=== PATIENT | male | born 1940 | race Caucasian/White ===

== ENCOUNTER 2016-10-06 15:41 | Inpatient (IN) | payer MEDICARE, BC ==
[2016-10-06] MEDS ORDERED: SODIUM CHLORIDE 0.9% 500 ML IV ONE (16:51)
--- NOTE | 2016-10-06 17:04 | ED ---
General Adult HPI - General Chief complaint: Altered Mental Status Stated complaint: Neck Pain, Cough, Confused Time Seen by Provider: 10/06/16 16:15 Source: patient, RN notes reviewed Mode of arrival: wheelchair - History of Present Illness Initial comments: This is a 75-year-old male who presents emergency department because of neck pain. Family states he fell about 9-10 days ago and has been complaining about neck pain ever since. Nobody witnessed it so they do not know if he lost consciousness and the patient has some dementia so he does not remember it. Family states he also has some altered mental status but the daughter believes this is been ongoing for months and has not acutely changed in the last 9-10 days since the fall. Patient has no numbness or weakness. Patient denies any chest pain or difficulty breathing currently. Daughter states initially had some left-sided chest pain which she believes could've been a cracked rib but since there is nothing new about it she did not bring him to the emergency department. Patient has not had any recent fevers or chills. Patient has had no recent cough. Patient denies any abdominal pain patient denies nausea vomiting diarrhea. Patient did go see a chiropractor but he did not take any x- rays. - Related Data Home Medications Medication Instructions Recorded Confirmed Atenolol [Tenormin] 25 mg PO QAM 10/06/16 10/06/16 Atenolol [Tenormin] 37.5 mg PO HS 10/06/16 10/06/16 Benazepril HCl [Lotensin] 20 mg PO DAILY 10/06/16 10/06/16 Calcium Citrate 250 mg PO DAILY 10/06/16 10/06/16 Cholecalciferol [Vitamin D3] 1,000 unit PO DAILY 10/06/16 10/06/16 Dipyridamole-Aspirin 200-25 mg 1 cap PO BID 10/06/16 10/06/16 [Aggrenox] Magnesium Oxide [Mag-Ox] 500 mg PO DAILY 10/06/16 10/06/16 Propylene Glycol/Peg 400/Pf 1 drop BOTH EYES BID PRN 10/06/16 10/06/16 [Systane 0.3-0.4% Eye Drops] Simvastatin [Zocor] 40 mg PO DAILY 10/06/16 10/06/16 Vit C/E/Zn/Coppr/Lutein/Zeaxan 1 cap PO BID 10/06/16 10/06/16 [Preservision Areds 2 Softgel] busPIRone HCl [Buspar] 5 mg PO BID 10/06/16 10/06/16 metFORMIN HCL [Glucophage] 250 mg PO BID-W/MEALS 10/06/16 10/06/16 tiZANidine [Zanaflex] 4 mg PO HS PRN 10/06/16 10/06/16 Allergies Allergy/AdvReac Type Severity Reaction Status Date / Time No Known Allergies Allergy Verified 10/06/16 17:04 Review of Systems ROS Statement: Those systems with pertinent positive or pertinent negative responses have been documented in the HPI. ROS Other: All systems not noted in ROS Statement are negative. Past Medical History Past Medical History: CVA/TIA, Diabetes Mellitus, Hyperlipidemia, Hypertension Additional Past Medical History / Comment(s): ARTHRITIS NECK History of Any Multi-Drug Resistant Organisms: None Reported Additional Past Surgical History / Comment(s): CATARACT Past Psychological History: No Psychological Hx Reported Smoking Status: Current every day smoker Past Alcohol Use History: Occasional Past Drug Use History: None Reported General Exam - General Exam Comments Initial Comments: GENERAL: Patient is well-developed and well-nourished. Patient is nontoxic and well- hydrated and is in mild distress. ENT: Neck is soft and supple. No significant lymphadenopathy is noted. Oropharynx is clear. Moist mucous membranes. Patient has some tenderness in the upper neck and both trapezius muscles he has no spinous process tenderness. EYES: The sclera were anicteric and conjunctiva were pink and moist. Extraocular movements were intact and pupils were equal round and reactive to light. Eyelids were unremarkable. PULMONARY: Unlabored respirations. Good breath sounds bilaterally. No audible rales rhonchi or wheezing was noted. CARDIOVASCULAR: There is a regular rate and rhythm without any murmurs gallops or rubs. ABDOMEN: Soft and nontender with normal bowel sounds. No palpable organomegaly was noted. There is no palpable pulsatile mass. SKIN: Skin is clear with no lesions or rashes and otherwise unremarkable. NEUROLOGIC: Patient is alert and oriented 2. Cranial nerves II through XII are grossly intact. Motor and sensory are also intact. Normal speech, volume and content. Symmetrical smile. MUSCULOSKELETAL: Normal extremities with adequate strength and full range of motion. No lower extremity swelling or edema. No calf tenderness. LYMPHATICS: No significant lymphadenopathy is noted PSYCHIATRIC: Normal psychiatric evaluation. Course Vital Signs 10/06/16 10/06/16 10/06/16 16:15 16:45 17:15 Temperature 98.9 F Pulse Rate 74 72 70 Respiratory 18 16 18 Rate Blood Pressure 154/75 151/70 136/65 O2 Sat by Pulse 96 95 95 Oximetry 10/06/16 10/06/16 10/06/16 20:56 21:19 22:14 Temperature 99.5 F 97.4 F L 99.2 F Pulse Rate 82 75 65 Respiratory 16 16 20 Rate Blood Pressure 177/92 186/88 191/89 O2 Sat by Pulse 96 98 98 Oximetry 10/06/16 10/07/16 10/07/16 23:30 00:16 00:44 Temperature 102.6 F H Pulse Rate 88 98 88 Respiratory 16 24 22 Rate Blood Pressure 211/98 217/110 191/87 O2 Sat by Pulse 98 98 98 Oximetry 10/07/16 10/07/16 10/07/16 00:52 00:54 01:33 Temperature 100.3 F H Pulse Rate 89 76 Respiratory 20 20 Rate Blood Pressure 184/86 176/91 171/86 O2 Sat by Pulse 98 98 Oximetry 10/07/16 10/07/16 10/07/16 02:30 03:20 04:33 Temperature 100 F H Pulse Rate 133 H 85 119 H Respiratory 20 22 24 Rate Blood Pressure 198/95 184/95 207/112 O2 Sat by Pulse 98 98 87 L Oximetry 10/07/16 10/07/16 10/07/16 05:26 05:30 05:55 Temperature Pulse Rate 121 H 135 H 125 H Respiratory 28 H 30 H 26 H Rate Blood Pressure 219/100 207/120 147/60 O2 Sat by Pulse 87 L 76 L 82 L Oximetry 10/07/16 10/07/16 10/07/16 06:19 06:57 07:32 Temperature Pulse Rate 102 H 92 83 Respiratory 16 16 20 Rate Blood Pressure 105/60 101/58 98/58 O2 Sat by Pulse 96 98 100 Oximetry 10/07/16 10/07/16 08:02 08:16 Temperature Pulse Rate 77 78 Respiratory 20 20 Rate Blood Pressure 99/57 100/56 O2 Sat by Pulse 99 100 Oximetry Medical Decision Making - Medical Decision Making EKG shows a normal sinus rhythm at 70 bpm MA interval 138 QRS is 94 Q-T intervals 432 QTC is 466. Patient's EKG shows no ST segment elevation or depression or T wave abnormalities are noted. Patient does have some ventricular hypertrophy. Patient's CT of the head and neck show no acute abnormality - Lab Data Result diagrams: 10/07/16 07:30 10/07/16 07:30 Lab Results 10/06/16 10/06/16 10/06/16 Range/Units 16:52 16:52 16:52 WBC 20.5 H (3.8-10.6) k/uL RBC 4.45 (4.30-5.90) m/uL Hgb 14.8 (13.0-17.5) gm/dL Hct 42.6 (39.0-53.0) % MCV 95.8 (80.0-100.0) fL MCH 33.3 (25.0-35.0) pg MCHC 34.8 (31.0-37.0) g/dL RDW 13.0 (11.5-15.5) % Plt Count 393 (150-450) k/uL Neutrophils % 88 % Lymphocytes % 6 % Monocytes % 5 % Eosinophils % 0 % Basophils % 0 % Neutrophils # 17.9 H (1.3-7.7) k/uL Lymphocytes # 1.2 (1.0-4.8) k/uL Monocytes # 0.9 (0-1.0) k/uL Eosinophils # 0.0 (0-0.7) k/uL Basophils # 0.0 (0-0.2) k/uL PT 12.9 H (9.0-12.0) sec INR 1.3 (<1.1) APTT 30.7 H (22.0-30.0) sec Sodium 131 L (137-145) mmol/L Potassium 3.8 (3.5-5.1) mmol/L Chloride 95 L (98-107) mmol/L Carbon Dioxide 27 (22-30) mmol/L Anion Gap 9 mmol/L BUN 22 H (9-20) mg/dL Creatinine 0.66 (0.66-1.25) mg/dL Est GFR (MDRD) Af Amer >60 (>60 ml/min/1.73 sqM) Est GFR (MDRD) Non-Af >60 (>60 ml/min/1.73 sqM) Glucose 276 H (74-99) mg/dL POC Glucose (mg/dL) (75-99) mg/dL POC Glu Colorer Hides And Skins ID Calcium 9.0 (8.4-10.2) mg/dL Total Bilirubin 2.4 H (0.2-1.3) mg/dL AST 40 (17-59) U/L ALT 36 (21-72) U/L Alkaline Phosphatase 196 H (38-126) U/L Total Protein 6.8 (6.3-8.2) g/dL Albumin 3.1 L (3.5-5.0) g/dL Urine Color Urine Appearance (Clear) Urine pH (5.0-8.0) Ur Specific Dale (1.001-1.035) Urine Protein (Negative) Urine Glucose (UA) (Negative) Urine Ketones (Negative) Urine Blood (Negative) Urine Nitrite (Negative) Urine Bilirubin (Negative) Urine Urobilinogen (<2.0) mg/dL Ur Leukocyte Esterase (Negative) Urine RBC (0-5) /hpf Urine WBC (0-5) /hpf Urine Bacteria (None) /hpf Hyaline Casts (0-2) /lpf Urine Mucus (None) /hpf Urine Yeast (Budding) (None) /hpf Urine Opiates Screen (NotDetected) Ur Oxycodone Screen (NotDetected) Urine Methadone Screen (NotDetected) Ur Propoxyphene Screen (NotDetected) Ur Barbiturates Screen (NotDetected) U Tricyclic Antidepress (NotDetected) Ur Phencyclidine Scrn (NotDetected) Ur Amphetamines Screen (NotDetected) U Methamphetamines Scrn (NotDetected) U Benzodiazepines Scrn (NotDetected) Urine Cocaine Screen (NotDetected) U Marijuana (THC) Screen (NotDetected) Serum Alcohol mg/dL 10/06/16 10/06/16 10/06/16 Range/Units 17:04 18:50 18:50 WBC (3.8-10.6) k/uL RBC (4.30-5.90) m/uL Hgb (13.0-17.5) gm/dL Hct (39.0-53.0) % MCV (80.0-100.0) fL MCH (25.0-35.0) pg MCHC (31.0-37.0) g/dL RDW (11.5-15.5) % Plt Count (150-450) k/uL Neutrophils % % Lymphocytes % % Monocytes % % Eosinophils % % Basophils % % Neutrophils # (1.3-7.7) k/uL Lymphocytes # (1.0-4.8) k/uL Monocytes # (0-1.0) k/uL Eosinophils # (0-0.7) k/uL Basophils # (0-0.2) k/uL PT (9.0-12.0) sec INR (<1.1) APTT (22.0-30.0) sec Sodium (137-145) mmol/L Potassium (3.5-5.1) mmol/L Chloride (98-107) mmol/L Carbon Dioxide (22-30) mmol/L Anion Gap mmol/L BUN (9-20) mg/dL Creatinine (0.66-1.25) mg/dL Est GFR (MDRD) Af Amer (>60 ml/min/1.73 sqM) Est GFR (MDRD) Non-Af (>60 ml/min/1.73 sqM) Glucose (74-99) mg/dL POC Glucose (mg/dL) 271 H (75-99) mg/dL POC Glu Colorer Hides And Skins ID Branch, Avery Calcium (8.4-10.2) mg/dL Total Bilirubin (0.2-1.3) mg/dL AST (17-59) U/L ALT (21-72) U/L Alkaline Phosphatase (38-126) U/L Total Protein (6.3-8.2) g/dL Albumin (3.5-5.0) g/dL Urine Color Dark Yellow Urine Appearance Clear (Clear) Urine pH 6.0 (5.0-8.0) Ur Specific Dale 1.020 (1.001-1.035) Urine Protein 1+ H (Negative) Urine Glucose (UA) 4+ H (Negative) Urine Ketones 1+ H (Negative) Urine Blood Large H (Negative) Urine Nitrite Negative (Negative) Urine Bilirubin 1+ H (Negative) Urine Urobilinogen 3.0 (<2.0) mg/dL Ur Leukocyte Esterase Negative (Negative) Urine RBC 89 H (0-5) /hpf Urine WBC 4 (0-5) /hpf Urine Bacteria Rare H (None) /hpf Hyaline Casts 1 (0-2) /lpf Urine Mucus Rare H (None) /hpf Urine Yeast (Budding) Rare H (None) /hpf Urine Opiates Screen Not Detected (NotDetected) Ur Oxycodone Screen Not Detected (NotDetected) Urine Methadone Screen Not Detected (NotDetected) Ur Propoxyphene Screen Not Detected (NotDetected) Ur Barbiturates Screen Not Detected (NotDetected) U Tricyclic Antidepress Not Detected (NotDetected) Ur Phencyclidine Scrn Not Detected (NotDetected) Ur Amphetamines Screen Not Detected (NotDetected) U Methamphetamines Scrn Not Detected (NotDetected) U Benzodiazepines Scrn Not Detected (NotDetected) Urine Cocaine Screen Not Detected (NotDetected) U Marijuana (THC) Screen Not Detected (NotDetected) Serum Alcohol mg/dL 10/06/16 Range/Units 19:30 WBC (3.8-10.6) k/uL RBC (4.30-5.90) m/uL Hgb (13.0-17.5) gm/dL Hct (39.0-53.0) % MCV (80.0-100.0) fL MCH (25.0-35.0) pg MCHC (31.0-37.0) g/dL RDW (11.5-15.5) % Plt Count (150-450) k/uL Neutrophils % % Lymphocytes % % Monocytes % % Eosinophils % % Basophils % % Neutrophils # (1.3-7.7) k/uL Lymphocytes # (1.0-4.8) k/uL Monocytes # (0-1.0) k/uL Eosinophils # (0-0.7) k/uL Basophils # (0-0.2) k/uL PT (9.0-12.0) sec INR (<1.1) APTT (22.0-30.0) sec Sodium (137-145) mmol/L Potassium (3.5-5.1) mmol/L Chloride (98-107) mmol/L Carbon Dioxide (22-30) mmol/L Anion Gap mmol/L BUN (9-20) mg/dL Creatinine (0.66-1.25) mg/dL Est GFR (MDRD) Af Amer (>60 ml/min/1.73 sqM) Est GFR (MDRD) Non-Af (>60 ml/min/1.73 sqM) Glucose (74-99) mg/dL POC Glucose (mg/dL) (75-99) mg/dL POC Glu Colorer Hides And Skins ID Calcium (8.4-10.2) mg/dL Total Bilirubin (0.2-1.3) mg/dL AST (17-59) U/L ALT (21-72) U/L Alkaline Phosphatase (38-126) U/L Total Protein (6.3-8.2) g/dL Albumin (3.5-5.0) g/dL Urine Color Urine Appearance (Clear) Urine pH (5.0-8.0) Ur Specific Dale (1.001-1.035) Urine Protein (Negative) Urine Glucose (UA) (Negative) Urine Ketones (Negative) Urine Blood (Negative) Urine Nitrite (Negative) Urine Bilirubin (Negative) Urine Urobilinogen (<2.0) mg/dL Ur Leukocyte Esterase (Negative) Urine RBC (0-5) /hpf Urine WBC (0-5) /hpf Urine Bacteria (None) /hpf Hyaline Casts (0-2) /lpf Urine Mucus (None) /hpf Urine Yeast (Budding) (None) /hpf Urine Opiates Screen (NotDetected) Ur Oxycodone Screen (NotDetected) Urine Methadone Screen (NotDetected) Ur Propoxyphene Screen (NotDetected) Ur Barbiturates Screen (NotDetected) U Tricyclic Antidepress (NotDetected) Ur Phencyclidine Scrn (NotDetected) Ur Amphetamines Screen (NotDetected) U Methamphetamines Scrn (NotDetected) U Benzodiazepines Scrn (NotDetected) Urine Cocaine Screen (NotDetected) U Marijuana (THC) Screen (NotDetected) Serum Alcohol <10 mg/dL Disposition Clinical Impression: Hypertension, Altered mental status, Dehydration, Decubitus ulcer of toe, Leukocytosis Disposition: ADMITTED IP TO THIS [facility] Time of Disposition: 20:55
[2016-10-06 17:06] LABS: Glucose,Whole Blood 271 mg/dL (75-99)
[2016-10-06 17:21] LABS: Basophils % (A) 0 %; CH 32.6; CHCM 34.1; Eosinophils % (A) 0 %; HCT 42.6 % (39.0-53.0); HGB 14.8 gm/dL (13.0-17.5); Luc # (Auto) 0.35; Luc % (Auto) 2; Lymphocytes # (A) 1.2 k/uL (1.0-4.8); Lymphocytes % (A) 6 %; MCH 33.3 pg (25.0-35.0); MCHC 34.8 g/dL (31.0-37.0); MCV 95.8 fL (80.0-100.0); Mean Platelet Volume 8.5; Monocytes # (A) 0.9 k/uL (0-1.0); Monocytes % (A) 5 %; Neutrophils # (A) 17.9 k/uL (1.3-7.7); Neutrophils % (A) 88 %; RBC 4.45 m/uL (4.30-5.90); WBC 20.5 k/uL (3.8-10.6); WBC (Perox) 20.62
[2016-10-06 17:30] LABS: ALT 36 U/L (21-72); AST 40 U/L (17-59); Alkaline Phosphatase 196 U/L (38-126); Anion Gap 9 mmol/L; Blood Urea Nitrogen 22 mg/dL (9-20); Carbon Dioxide 27 mmol/L (22-30); Chloride 95 mmol/L (98-107); Glucose 276 mg/dL (74-99); Non-African American GFR(MDRD) >60 (>60 ml/min/1.73 sqM); Potassium 3.8 mmol/L (3.5-5.1); Sodium 131 mmol/L (137-145); Total Bilirubin 2.4 mg/dL (0.2-1.3); Total Protein 6.8 g/dL (6.3-8.2)
[2016-10-06 17:32] LABS: INR 1.3 (<1.1); Partial Thromboplastin Time 30.7 sec (22.0-30.0); Prothrombin Time 12.9 sec (9.0-12.0)
--- NOTE | 2016-10-06 17:43 | XR ---
EXAMINATION TYPE: XR chest 2V DATE OF EXAM: 10/06/2016 5:23 PM COMPARISON: NONE HISTORY: Increased confusion and congestion. History of hypertension. TECHNIQUE: Frontal and lateral views of the chest are obtained. FINDINGS: There is no focal air space opacity, pleural effusion, or pneumothorax seen. The cardiac silhouette size is mildly enlarged with mild to moderate central vascular congestion felt present. T here is atherosclerotic and slightly ectatic thoracic aorta. The osseous structures are intact. IMPRESSION: Mild cardiomegaly with [id number] central vascular congestion, consider CHF exacer bation. Clinical correlation advised.
--- NOTE | 2016-10-06 18:07 | CT ---
EXAMINATION TYPE: CT brain cspine wo con DATE OF EXAM: 10/06/2016 5:46 PM COMPARISON: MRI brain November 11, 2013. HISTORY: Neck pain and confusion. CT DLP: 1624.00 mGycm. Automated Exposure Control for Dose Reduction was Utilized. TECHNIQUE: CT scan of the head and cervical spine are performed without contrast. FINDINGS: There is no acute intracranial hemorrhage or midline shift identified. There is ventricul ar and sulcal prominence consistent with diffuse cerebral atrophy. There is low-attenuation in the pe riventricular white matter. Mild mucosal thickening involving right maxillary sinus is felt present a s well as involving left lateral sphenoid sinus and right frontal sinus. Remainder paranasal sinuses are clear. Vascular calcification distal internal carotid arteries is present bilaterally. Neither le ns is well seen in either globe. Cervical spine is visualized in its entirety from C1 through upper thoracic levels and demonstrates s traightened alignment without evidence of acute fracture or dislocation. Prevertebral soft tissue ap pears within normal limits. The C1-C2 articulation is within normal limits on the coronal images. Th ere is marked narrowing of the atlantodental interval with spurring present. Vertebral body heights are maintained. There is moderate to severe spurring and disc space narrowing at C5-C6 and C6-C7 levels. Review of axial images shows uncovertebral facet degenerative changes bila terally at C3-C4 level contributing to moderate left greater than right neural foraminal narrowing. T here are uncovertebral facet degenerative changes at C4-C5 level contributing to mild to moderate paul ateral neural foraminal narrowing. Thyroid gland is felt within normal limits. Mild emphysematous ness nge in the lung apices is seen. IMPRESSION: 1. There is no acute fracture or dislocation evident in the cervical spine. 2. No acute intracranial hemorrhage or midline shift is seen. There is mild to moderate diffuse cereb ral atrophy with severe chronic small vessel ischemic change redemonstrated.
[2016-10-06 20:13] LABS: Appearance,Urine Clear (Clear); Bacteria,Urine Rare /hpf; Bilirubin,Urine 1+ (Negative); Glucose,Urine (UA) 4+ (Negative); Ketones,Urine 1+ (Negative); Leukocyte Esterase,Urine Negative (Negative); Mucus,Urine Rare /hpf; Nitrite,Urine Negative (Negative); Particle Count 3384; Protein,Urine 1+ (Negative); RBC,Urine 89 /hpf (0-5); UA Billing (MACRO vs. MICRO) MICRO; WBC,Urine 4 /hpf (0-5)
[2016-10-06] MEDS ORDERED: hydrALAZINE HCL 20 MG/ML 1 ML VIAL IVP STA (20:48)
[2016-10-06] MEDS ORDERED: SODIUM CHLORIDE 0.9% 1,000 ML IV ONE (20:56)
[2016-10-06] MEDS: LORazepam 2 MG/ML SYRINGE IV STA ×2 (21:01→21:40)
[2016-10-06] MEDS ORDERED: LORazepam 2 MG/ML SYRINGE IV PRN (21:50)
[2016-10-06] MEDS ORDERED: ATENOLOL 12.5 MG TAB PO STA (22:29)
[2016-10-06] MEDS ORDERED: LORazepam 2 MG/ML SYRINGE IV STA (23:30)
[2016-10-07] MEDS ORDERED: ACETAMINOPHEN SUPPOSITORY 650 MG SUPP RECTAL STA (00:18)
[2016-10-07 01:48] LABS: Glucose,Whole Blood 223 mg/dL (75-99)
[2016-10-07] MEDS ORDERED: LORazepam 2 MG/ML SYRINGE IV STA (03:23)
[2016-10-07] MEDS: hydrALAZINE HCL 20 MG/ML 1 ML VIAL IVP STA ×2 (04:32→05:42)
[2016-10-07] MEDS ORDERED: MIDAZOLAM (PF) 1 MG/ML 5 ML VIAL IV STA ×2 (06:01→06:17)
[2016-10-07] MEDS: MORPHINE SULFATE 4 MG/ML SYRINGE IVP STA ×2 (06:02→06:24)
--- NOTE | 2016-10-07 06:23 | ED ---
Medical Decision Making - Medical Decision Making I was called to the bedside for this admitted patient who is holding in the ER regarding decreased responsiveness, decreased pulse oximetry and hypertension. Clinically the patient does appear to be developing a worsening congestive heart failure. It is brought into the resuscitation room. I did discuss the case with admitting physician, Dr. Rucker. IV nitroglycerin had been started for blood pressure control. As the patient was not protecting airway he met indication for intubation for airway protection and for respiratory failure. Patient was intubated without complication. The pulse oximetry improved. Patient's vital signs are improved. - Lab Data Result diagrams: 10/06/16 16:52 10/06/16 16:52 Lab Results 10/06/16 10/06/16 10/06/16 Range/Units 16:52 16:52 16:52 WBC 20.5 H (3.8-10.6) k/uL RBC 4.45 (4.30-5.90) m/uL Hgb 14.8 (13.0-17.5) gm/dL Hct 42.6 (39.0-53.0) % MCV 95.8 (80.0-100.0) fL MCH 33.3 (25.0-35.0) pg MCHC 34.8 (31.0-37.0) g/dL RDW 13.0 (11.5-15.5) % Plt Count 393 (150-450) k/uL Neutrophils % 88 % Lymphocytes % 6 % Monocytes % 5 % Eosinophils % 0 % Basophils % 0 % Neutrophils # 17.9 H (1.3-7.7) k/uL Lymphocytes # 1.2 (1.0-4.8) k/uL Monocytes # 0.9 (0-1.0) k/uL Eosinophils # 0.0 (0-0.7) k/uL Basophils # 0.0 (0-0.2) k/uL PT 12.9 H (9.0-12.0) sec INR 1.3 (<1.1) APTT 30.7 H (22.0-30.0) sec Sodium 131 L (137-145) mmol/L Potassium 3.8 (3.5-5.1) mmol/L Chloride 95 L (98-107) mmol/L Carbon Dioxide 27 (22-30) mmol/L Anion Gap 9 mmol/L BUN 22 H (9-20) mg/dL Creatinine 0.66 (0.66-1.25) mg/dL Est GFR (MDRD) Af Amer >60 (>60 ml/min/1.73 sqM) Est GFR (MDRD) Non-Af >60 (>60 ml/min/1.73 sqM) Glucose 276 H (74-99) mg/dL POC Glucose (mg/dL) (75-99) mg/dL POC Glu Cheese Sprayer ID Calcium 9.0 (8.4-10.2) mg/dL Total Bilirubin 2.4 H (0.2-1.3) mg/dL AST 40 (17-59) U/L ALT 36 (21-72) U/L Alkaline Phosphatase 196 H (38-126) U/L Total Protein 6.8 (6.3-8.2) g/dL Albumin 3.1 L (3.5-5.0) g/dL Urine Color Urine Appearance (Clear) Urine pH (5.0-8.0) Ur Specific [place] (1.001-1.035) Urine Protein (Negative) Urine Glucose (UA) (Negative) Urine Ketones (Negative) Urine Blood (Negative) Urine Nitrite (Negative) Urine Bilirubin (Negative) Urine Urobilinogen (<2.0) mg/dL Ur Leukocyte Esterase (Negative) Urine RBC (0-5) /hpf Urine WBC (0-5) /hpf Urine Bacteria (None) /hpf Hyaline Casts (0-2) /lpf Urine Mucus (None) /hpf Urine Yeast (Budding) (None) /hpf Urine Opiates Screen (NotDetected) Ur Oxycodone Screen (NotDetected) Urine Methadone Screen (NotDetected) Ur Propoxyphene Screen (NotDetected) Ur Barbiturates Screen (NotDetected) U Tricyclic Antidepress (NotDetected) Ur Phencyclidine Scrn (NotDetected) Ur Amphetamines Screen (NotDetected) U Methamphetamines Scrn (NotDetected) U Benzodiazepines Scrn (NotDetected) Urine Cocaine Screen (NotDetected) U Marijuana (THC) Screen (NotDetected) Serum Alcohol mg/dL 04/10/17 04/10/17 04/10/17 Range/Units 17:04 18:50 18:50 WBC (3.8-10.6) k/uL RBC (4.30-5.90) m/uL Hgb (13.0-17.5) gm/dL Hct (39.0-53.0) % MCV (80.0-100.0) fL MCH (25.0-35.0) pg MCHC (31.0-37.0) g/dL RDW (11.5-15.5) % Plt Count (150-450) k/uL Neutrophils % % Lymphocytes % % Monocytes % % Eosinophils % % Basophils % % Neutrophils # (1.3-7.7) k/uL Lymphocytes # (1.0-4.8) k/uL Monocytes # (0-1.0) k/uL Eosinophils # (0-0.7) k/uL Basophils # (0-0.2) k/uL PT (9.0-12.0) sec INR (<1.1) APTT (22.0-30.0) sec Sodium (137-145) mmol/L Potassium (3.5-5.1) mmol/L Chloride (98-107) mmol/L Carbon Dioxide (22-30) mmol/L Anion Gap mmol/L BUN (9-20) mg/dL Creatinine (0.66-1.25) mg/dL Est GFR (MDRD) Af Amer (>60 ml/min/1.73 sqM) Est GFR (MDRD) Non-Af (>60 ml/min/1.73 sqM) Glucose (74-99) mg/dL POC Glucose (mg/dL) 271 H (75-99) mg/dL POC Glu Cheese Sprayer ID Branch, Avery Calcium (8.4-10.2) mg/dL Total Bilirubin (0.2-1.3) mg/dL AST (17-59) U/L ALT (21-72) U/L Alkaline Phosphatase (38-126) U/L Total Protein (6.3-8.2) g/dL Albumin (3.5-5.0) g/dL Urine Color Dark Yellow Urine Appearance Clear (Clear) Urine pH 6.0 (5.0-8.0) Ur Specific [place] 1.020 (1.001-1.035) Urine Protein 1+ H (Negative) Urine Glucose (UA) 4+ H (Negative) Urine Ketones 1+ H (Negative) Urine Blood Large H (Negative) Urine Nitrite Negative (Negative) Urine Bilirubin 1+ H (Negative) Urine Urobilinogen 3.0 (<2.0) mg/dL Ur Leukocyte Esterase Negative (Negative) Urine RBC 89 H (0-5) /hpf Urine WBC 4 (0-5) /hpf Urine Bacteria Rare H (None) /hpf Hyaline Casts 1 (0-2) /lpf Urine Mucus Rare H (None) /hpf Urine Yeast (Budding) Rare H (None) /hpf Urine Opiates Screen Not Detected (NotDetected) Ur Oxycodone Screen Not Detected (NotDetected) Urine Methadone Screen Not Detected (NotDetected) Ur Propoxyphene Screen Not Detected (NotDetected) Ur Barbiturates Screen Not Detected (NotDetected) U Tricyclic Antidepress Not Detected (NotDetected) Ur Phencyclidine Scrn Not Detected (NotDetected) Ur Amphetamines Screen Not Detected (NotDetected) U Methamphetamines Scrn Not Detected (NotDetected) U Benzodiazepines Scrn Not Detected (NotDetected) Urine Cocaine Screen Not Detected (NotDetected) U Marijuana (THC) Screen Not Detected (NotDetected) Serum Alcohol mg/dL 10/06/16 Range/Units 19:30 WBC (3.8-10.6) k/uL RBC (4.30-5.90) m/uL Hgb (13.0-17.5) gm/dL Hct (39.0-53.0) % MCV (80.0-100.0) fL MCH (25.0-35.0) pg MCHC (31.0-37.0) g/dL RDW (11.5-15.5) % Plt Count (150-450) k/uL Neutrophils % % Lymphocytes % % Monocytes % % Eosinophils % % Basophils % % Neutrophils # (1.3-7.7) k/uL Lymphocytes # (1.0-4.8) k/uL Monocytes # (0-1.0) k/uL Eosinophils # (0-0.7) k/uL Basophils # (0-0.2) k/uL PT (9.0-12.0) sec INR (<1.1) APTT (22.0-30.0) sec Sodium (137-145) mmol/L Potassium (3.5-5.1) mmol/L Chloride (98-107) mmol/L Carbon Dioxide (22-30) mmol/L Anion Gap mmol/L BUN (9-20) mg/dL Creatinine (0.66-1.25) mg/dL Est GFR (MDRD) Af Amer (>60 ml/min/1.73 sqM) Est GFR (MDRD) Non-Af (>60 ml/min/1.73 sqM) Glucose (74-99) mg/dL POC Glucose (mg/dL) (75-99) mg/dL POC Glu Cheese Sprayer ID Calcium (8.4-10.2) mg/dL Total Bilirubin (0.2-1.3) mg/dL AST (17-59) U/L ALT (21-72) U/L Alkaline Phosphatase (38-126) U/L Total Protein (6.3-8.2) g/dL Albumin (3.5-5.0) g/dL Urine Color Urine Appearance (Clear) Urine pH (5.0-8.0) Ur Specific [place] (1.001-1.035) Urine Protein (Negative) Urine Glucose (UA) (Negative) Urine Ketones (Negative) Urine Blood (Negative) Urine Nitrite (Negative) Urine Bilirubin (Negative) Urine Urobilinogen (<2.0) mg/dL Ur Leukocyte Esterase (Negative) Urine RBC (0-5) /hpf Urine WBC (0-5) /hpf Urine Bacteria (None) /hpf Hyaline Casts (0-2) /lpf Urine Mucus (None) /hpf Urine Yeast (Budding) (None) /hpf Urine Opiates Screen (NotDetected) Ur Oxycodone Screen (NotDetected) Urine Methadone Screen (NotDetected) Ur Propoxyphene Screen (NotDetected) Ur Barbiturates Screen (NotDetected) U Tricyclic Antidepress (NotDetected) Ur Phencyclidine Scrn (NotDetected) Ur Amphetamines Screen (NotDetected) U Methamphetamines Scrn (NotDetected) U Benzodiazepines Scrn (NotDetected) Urine Cocaine Screen (NotDetected) U Marijuana (THC) Screen (NotDetected) Serum Alcohol <10 mg/dL Disposition Clinical Impression: Hypertension, Altered mental status, Dehydration, Decubitus ulcer of toe, Leukocytosis Disposition: ADMITTED IP TO THIS [facility] Procedures - Intubation Time Out Performed: Yes Sedative: Versed Laryngoscope: Dania Size: 3 ET Tube Size: 8 ET Tube Uncuffed: No Tube Secured Location: lips Tube Placement Confirmation: visualized tube passing through cords, equal breath sounds bilaterally, no breath sounds over epigastrium, confirmation by capnometry Patient Tolerated Procedure: no complications Intubation Complications: none
[2016-10-07] MEDS ORDERED: NITROGLYCERIN-D5W PMX 50 MG in DEXTROSE/WATER 1 250ML.BAG IV SCH ×2 (06:30→06:45)
[2016-10-07 06:34] LABS: ABG HCO3 22 mmol/L (21-25); ABG PCO2 39 mmHg (35-45); ABG PH 7.37 (7.35-7.45); ABG PO2 252 mmHg (83-108); ABG TCO2 23 mmol/L (19-24)
[2016-10-07 06:35] LABS: ABG Base Excess -2.7 mmol/L
--- NOTE | 2016-10-07 06:38 | XR ---
EXAM: XR Chest, 1 View. CLINICAL HISTORY: Reason: SOB TECHNIQUE: Frontal view of the chest. COMPARISON: CXR 10/06/16 FINDINGS: Lungs: Increased bilateral lower lung interstitial densities. Pleural space: Bilateral small pleural effusions. Heart: Unremarkable. No cardiomegaly. Mediastinum: Unremarkable. Bones/joints: Unremarkable. Tubes, lines and devices: ET tube 3 cm above the navjot. NG tube tip within the fundus of the stomach. IMPRESSION: 1. Increased bilateral lower lung interstitial densities. Findings may reflect worsening failure or other interstitial process. 2. Bilateral small pleural effusions. 3. ET tube 3 cm above the navjot.
[2016-10-07] MEDS ORDERED: LEVOFLOXACIN 750MG-D5W PMX 750 MG in DEXTROSE/WATER 1 150ML.BAG IVPB STA (07:43)
[2016-10-07 07:57] LABS: Basophils % (A) 0 %; CH 32.4; CHCM 33.7; Eosinophils # (A) 0.1 k/uL (0-0.7); Eosinophils % (A) 0 %; HDW 2.41; HGB 13.5 gm/dL (13.0-17.5); Luc % (Auto) 1; Lymphocytes # (A) 0.7 k/uL (1.0-4.8); Lymphocytes % (A) 2 %; MCH 32.6 pg (25.0-35.0); MCHC 33.8 g/dL (31.0-37.0); MCV 96.4 fL (80.0-100.0); Mean Platelet Volume 8.3; Monocytes # (A) 0.7 k/uL (0-1.0); Monocytes % (A) 2 %; Neutrophils # (A) 30.5 k/uL (1.3-7.7); Neutrophils % (A) 95 %; RBC 4.14 m/uL (4.30-5.90); WBC (Perox) 32.59
[2016-10-07 08:03] LABS: WBC 32.3 k/uL (3.8-10.6)
[2016-10-07 08:11] LABS: ALT 34 U/L (21-72); AST 23 U/L (17-59); Alkaline Phosphatase 142 U/L (38-126); Anion Gap 11 mmol/L; Blood Urea Nitrogen 18 mg/dL (9-20); Calcium 8.3 mg/dL (8.4-10.2); Carbon Dioxide 24 mmol/L (22-30); Chloride 99 mmol/L (98-107); Glucose 274 mg/dL (74-99); Non-African American GFR(MDRD) >60 (>60 ml/min/1.73 sqM); Potassium 3.6 mmol/L (3.5-5.1); Sodium 134 mmol/L (137-145); Total Bilirubin 2.5 mg/dL (0.2-1.3)
[2016-10-07] MEDS ORDERED: Potassium Replacement Protocol 1 EACH MISC MISCELLANE PRN ×2 (09:43→22:34)
[2016-10-07] MEDS ORDERED: Magnesium Replacement Protocol 1 EACH MISC MISCELLANE PRN (09:43)
[2016-10-07] MEDS ORDERED: PROPOFOL 50 ML IV ONE (10:50)
[2016-10-07] MEDS: PROPOFOL 500 MG in EMPTY BAG 1 BAG IV SCH ×2 (11:30→19:52)
[2016-10-07 11:36] LABS: Glucose,Whole Blood 259 mg/dL (75-99)
[2016-10-07] MEDS ORDERED: IPRATROPIUM-ALBUTEROL 3 ML NEB INHALATION PRN (11:39)
[2016-10-07] MEDS ORDERED: SODIUM CHLORIDE 0.9% 500 ML IV ONE (11:39)
--- NOTE | 2016-10-07 12:06 | P.HPIM ---
History of Present Illness H&P Date: 10/07/16 Chief Complaint: Headache and neck pain Patient is currently sedated and intubated in the emergency room. He is unable to provide medical history most of the medical history was obtained by chart review and nursing staff report. This is a 75-year-old gentleman with past medical history noted below who presented to the emergency room originally with worsening headache and neck pain. Apparently, the patient is a very poor historian and most of the history was obtained by his . Patient had a fall at home approximately a week ago and since then he was complaining of neck pain and mild headache. He was initially evaluated and underwent a computed tomography scan of the head and cervical spine showing no acute Process. Per report, patient is a heavy alcohol drinker and does not take his medication regularly. He was noted to have elevated blood pressure in the emergency room initially in the 150s and 160s systolic. Apparently, patient was getting more agitated and he received multiple doses of IV Ativan. Throughout the night, his systolic blood pressure increased to 190s and 200 and after receiving 2 doses of IV hydralazine 10 mg blood pressure remained elevated. He had increase in his oxygen requirement and was essentially unremarkable agreed her. He was reevaluated by the ER physician and was concerned about him not able to protect his airway and worsening lethargy patient was intubated. Repeat chest x-ray showed worsening bibasilar infiltrate with possible aspiration pneumonia. Review of Systems Unable to review other systems as patient is sedated and intubated Past Medical History Past Medical History: CVA/TIA, Diabetes Mellitus, Hyperlipidemia, Hypertension Additional Past Medical History / Comment(s): ARTHRITIS NECK History of Any Multi-Drug Resistant Organisms: None Reported Additional Past Surgical History / Comment(s): CATARACT Past Psychological History: No Psychological Hx Reported Smoking Status: Current every day smoker Past Alcohol Use History: Occasional Past Drug Use History: None Reported Medications and Allergies Home Medications Medication Instructions Recorded Confirmed Type Atenolol [Tenormin] 25 mg PO QAM 10/06/16 10/06/16 History Atenolol [Tenormin] 37.5 mg PO HS 10/06/16 10/06/16 History Benazepril HCl [Lotensin] 20 mg PO DAILY 10/06/16 10/06/16 History Calcium Citrate 250 mg PO DAILY 10/06/16 10/06/16 History Cholecalciferol [Vitamin D3] 1,000 unit PO DAILY 10/06/16 10/06/16 History Dipyridamole-Aspirin 200-25 mg 1 cap PO BID 10/06/16 10/06/16 History [Aggrenox] Magnesium Oxide [Mag-Ox] 500 mg PO DAILY 10/06/16 10/06/16 History Propylene Glycol/Peg 400/Pf 1 drop BOTH EYES BID PRN 10/06/16 10/06/16 History [Systane 0.3-0.4% Eye Drops] Simvastatin [Zocor] 40 mg PO DAILY 10/06/16 10/06/16 History Vit C/E/Zn/Coppr/Lutein/Zeaxan 1 cap PO BID 10/06/16 10/06/16 History [Preservision Areds 2 Softgel] busPIRone HCl [Buspar] 5 mg PO BID 10/06/16 10/06/16 History metFORMIN HCL [Glucophage] 250 mg PO BID-W/MEALS 10/06/16 10/06/16 History tiZANidine [Zanaflex] 4 mg PO HS PRN 10/06/16 10/06/16 History Allergies Allergy/AdvReac Type Severity Reaction Status Date / Time No Known Allergies Allergy Verified 10/06/16 17:04 Physical Exam Vitals: Vital Signs Temp Pulse Resp BP Pulse Ox 10/07/16 11:40 98.3 F 78 20 140/71 96 10/07/16 11:30 79 19 140/71 99 10/07/16 11:26 79 18 10/07/16 10:11 98.2 F 74 20 113/64 98 10/07/16 10:10 98.2 F 76 20 111/63 99 10/07/16 09:00 98.2 F 74 20 118/68 10/07/16 08:30 98.2 F 76 20 101/60 10/07/16 08:16 78 20 100/56 100 10/07/16 08:02 77 20 99/57 99 10/07/16 07:32 83 20 98/58 100 10/07/16 06:57 92 16 101/58 98 10/07/16 06:19 102 H 16 105/60 96 10/07/16 05:55 125 H 26 H 147/60 82 L 10/07/16 05:30 135 H 30 H 207/120 76 L 10/07/16 05:26 121 H 28 H 219/100 87 L 10/07/16 04:33 100 F H 119 H 24 207/112 87 L 10/07/16 03:20 85 22 184/95 98 10/07/16 02:30 133 H 20 198/95 98 10/07/16 01:33 76 20 171/86 98 10/07/16 00:54 100.3 F H 176/91 10/07/16 00:52 89 20 184/86 98 10/07/16 00:44 88 22 191/87 98 10/07/16 00:16 102.6 F H 98 24 217/110 98 10/06/16 23:30 88 16 211/98 98 10/06/16 22:14 99.2 F 65 20 191/89 98 10/06/16 21:19 97.4 F L 75 16 186/88 98 Intake and Output 10/06/16 10/07/16 10/07/16 22:59 06:59 14:59 Intake Total 6.4 500 Output Total 150 200 Balance -143.6 300 Intake: Intake, IV Titration 6.4 500 Amount Nitroglycerin-D5w Pmx 50 6.4 mg In Dextrose/Water 1 250ml.bag @ 20 MCG/MIN 6 mls/hr IV .Q24H [facility] Rx#: [id number] Sodium Chloride 0.9% 500 500 ml @ 999 mls/hr IV .Q31M ONE Rx#:[id number] Output: Urine 150 200 Uretheral (Rosen) 150 General: The patient is sedated and intubated Eye: there is normal conjunctiva bilaterally. Neck: The neck is supple, there is no JVD. Cardiovascular: Normal S1-S2, no S3-S4, no murmurs. Respiratory: Lungs with mechanical ventilation sounds Gastrointestinal: Abdomen is soft, nontender Musculoskeletal: There is no pedal edema. Skin: Skin is warm and dry Results CBC & Chem 7: 10/07/16 07:30 10/07/16 07:30 Labs: Abnormal Lab Results - Last 24 Hours (Table) 10/07/16 10/07/16 10/07/16 Range/Units 01:45 06:23 07:30 WBC (3.8-10.6) k/uL RBC (4.30-5.90) m/uL Neutrophils # (1.3-7.7) k/uL Lymphocytes # (1.0-4.8) k/uL ABG pO2 252 H (83-108) mmHg ABG O2 Saturation 100.0 H (94-97) % Sodium 134 L (137-145) mmol/L Glucose 274 H (74-99) mg/dL POC Glucose (mg/dL) 223 H (75-99) mg/dL Calcium 8.3 L (8.4-10.2) mg/dL Total Bilirubin 2.5 H (0.2-1.3) mg/dL Alkaline Phosphatase 142 H (38-126) U/L Troponin I (0.000-0.034) ng/mL Total Protein 6.0 L (6.3-8.2) g/dL Albumin 2.6 L (3.5-5.0) g/dL 10/07/16 10/07/16 10/07/16 Range/Units 07:30 07:30 11:34 WBC 32.3 H* (3.8-10.6) k/uL RBC 4.14 L (4.30-5.90) m/uL Neutrophils # 30.5 H (1.3-7.7) k/uL Lymphocytes # 0.7 L (1.0-4.8) k/uL ABG pO2 (83-108) mmHg ABG O2 Saturation (94-97) % Sodium (137-145) mmol/L Glucose (74-99) mg/dL POC Glucose (mg/dL) 259 H (75-99) mg/dL Calcium (8.4-10.2) mg/dL Total Bilirubin (0.2-1.3) mg/dL Alkaline Phosphatase (38-126) U/L Troponin I 0.091 H* (0.000-0.034) ng/mL Total Protein (6.3-8.2) g/dL Albumin (3.5-5.0) g/dL Assessment and Plan Plan: 1. Hypertensive emergency: May be attributed to medication noncompliance at home 2. Acute hypoxic respiratory failure: Multifactorial 3. Acute systolic heart failure with worsening pulmonary edema and elevated BNP at 20,000. Probably attributed to uncontrolled blood pressure. Cardiology consulted. We will obtain echocardiogram for further evaluation. 4. Troponin elevation: Most likely not thrombotic troponin leak secondary to hypertensive emergency. 12 leads EKG showed no acute ischemic changes. Cardiology consulted for further evaluation. 5. Aspiration pneumonia: Started on Levaquin and Zosyn. pulmonology following closely. 6. Recent fall with worsening neck pain and headache. Computed tomography scan of the head and cervical spine with no acute findings. 7. Type 2 diabetes mellitus: Continue sliding scale insulin. Check A1c. 8. Mixed hyperlipidemia 9. Reported alcohol abuse: We will discuss further with family members when they arrive 10. GI and DVT prophylaxis Today, I reviewed his medication list and lab work resolved. Continue broad spectrum antibiotic. Awaiting transfer to ICU. Continue diuresis with IV Lasix. Check echocardiogram. Appreciate regional sales consultant's recommendations. Repeat lab work in the morning. Continue supportive care.
[2016-10-07] MEDS: PIPERACILLIN-TAZOBACTAM 3.375 GM in DEXTROSE/WATER 1 50ML.BAG IVPB SCH ×3 (12:26→23:59)
[2016-10-07 12:36] LABS: Hemoglobin A1C 7.9 % (4.2-6.1)
[2016-10-07] MEDS: IPRATROPIUM-ALBUTEROL 3 ML NEB INHALATION SCH ×3 (13:01→19:52)
--- NOTE | 2016-10-07 13:06 | P.CNPUL ---
History of Present Illness Consult date: 10/07/16 Requesting physician: Mónica Garnett Reason for consult: other (acute respiratory failure) Chief complaint: headache and neck pain History of present illness: this is a 75-year-old white male with history of dementia, recent fall at home about a week ago, and he presented to the ER with complaints of neck pain and mild headache. Workup in the ER included CT of the head and cervical spine, and it showed no evidence of fracture or any acute abnormality. While in the ER , the patient was getting more and more restless and agitated, supposedly is a heavy drinker, and at the same time the patient was receiving intermittent IV injections of Ativan. Looking at the [facility], patient received about 4 mg of Ativan over a period of few hours. Patient was actually waiting in the ER to be admitted, and he was at one point and ER hold. Early this morning, according to the ER physician, the patient became hypertensive, blood pressure was significantly elevated requiring Apresoline and nitroglycerin drip. In the meantime the patient's oxygen requirement was getting worse, and early this morning the patient became unresponsive. He was unable to protect his airways, he was quite lethargic, required intubation and mechanical ventilation. Chest x -ray initially upon arrival to the ER showed mild interstitial edema, not severe enough to cause respiratory failure, however follow-up chest x-ray this morning showed worsening bibasilar infiltrates.suggestive of pneumonia. CBC showed definite leukocytosis,white count is as high as 32.3,lactic acid earlier was 1.7, follow-up lactic acid was 1.4 ProBNP level was elevated at 20, 600.influenza screening was negative.ABG shortly after the patient was intubated showed a pO2 of 252 he CO2 of 39 pH of 7.37 and this was on 100% FiO2.I evaluated the patient in the ICU, I recommended broad-spectrum antibiotics empirically for pneumonia, kept him on small dose of Lasix 20 mg every 12 hours, and cultures were ordered including blood cultures which are pending. Review of Systems ROS unobtainable: due to endotracheal tube Past Medical History Past Medical History: CVA/TIA, Diabetes Mellitus, Hyperlipidemia, Hypertension Additional Past Medical History / Comment(s): ARTHRITIS NECK History of Any Multi-Drug Resistant Organisms: None Reported Additional Past Surgical History / Comment(s): CATARACT Past Psychological History: No Psychological Hx Reported Smoking Status: Current every day smoker Past Alcohol Use History: Occasional Past Drug Use History: None Reported Medications and Allergies Home Medications Medication Instructions Recorded Confirmed Type Atenolol [Tenormin] 25 mg PO QAM 10/06/16 10/06/16 History Atenolol [Tenormin] 37.5 mg PO HS 10/06/16 10/06/16 History Benazepril HCl [Lotensin] 20 mg PO DAILY 10/06/16 10/06/16 History Calcium Citrate 250 mg PO DAILY 10/06/16 10/06/16 History Cholecalciferol [Vitamin D3] 1,000 unit PO DAILY 10/06/16 10/06/16 History Dipyridamole-Aspirin 200-25 mg 1 cap PO BID 10/06/16 10/06/16 History [Aggrenox] Magnesium Oxide [Mag-Ox] 500 mg PO DAILY 10/06/16 10/06/16 History Propylene Glycol/Peg 400/Pf 1 drop BOTH EYES BID PRN 10/06/16 10/06/16 History [Systane 0.3-0.4% Eye Drops] Simvastatin [Zocor] 40 mg PO DAILY 10/06/16 10/06/16 History Vit C/E/Zn/Coppr/Lutein/Zeaxan 1 cap PO BID 10/06/16 10/06/16 History [Preservision Areds 2 Softgel] busPIRone HCl [Buspar] 5 mg PO BID 10/06/16 10/06/16 History metFORMIN HCL [Glucophage] 250 mg PO BID-W/MEALS 10/06/16 10/06/16 History tiZANidine [Zanaflex] 4 mg PO HS PRN 10/06/16 10/06/16 History Allergies Allergy/AdvReac Type Severity Reaction Status Date / Time No Known Allergies Allergy Verified 10/06/16 17:04 Physical Exam Vitals: Vital Signs Temp Pulse Resp BP Pulse Ox 10/07/16 11:40 98.3 F 78 20 140/71 96 10/07/16 11:30 79 19 140/71 99 10/07/16 11:26 79 18 10/07/16 10:11 98.2 F 74 20 113/64 98 10/07/16 10:10 98.2 F 76 20 111/63 99 10/07/16 09:00 98.2 F 74 20 118/68 10/07/16 08:30 98.2 F 76 20 101/60 10/07/16 08:16 78 20 100/56 100 10/07/16 08:02 77 20 99/57 99 10/07/16 07:32 83 20 98/58 100 10/07/16 06:57 92 16 101/58 98 10/07/16 06:19 102 H 16 105/60 96 10/07/16 05:55 125 H 26 H 147/60 82 L 10/07/16 05:30 135 H 30 H 207/120 76 L 10/07/16 05:26 121 H 28 H 219/100 87 L 10/07/16 04:33 100 F H 119 H 24 207/112 87 L 10/07/16 03:20 85 22 184/95 98 10/07/16 02:30 133 H 20 198/95 98 10/07/16 01:33 76 20 171/86 98 10/07/16 00:54 100.3 F H 176/91 10/07/16 00:52 89 20 184/86 98 10/07/16 00:44 88 22 191/87 98 10/07/16 00:16 102.6 F H 98 24 217/110 98 10/06/16 23:30 88 16 211/98 98 10/06/16 22:14 99.2 F 65 20 191/89 98 10/06/16 21:19 97.4 F L 75 16 186/88 98 Intake and Output 10/06/16 10/07/16 10/07/16 22:59 06:59 14:59 Intake Total 6.4 500 Output Total 150 200 Balance -143.6 300 Intake: Intake, IV Titration 6.4 500 Amount Nitroglycerin-D5w Pmx 50 6.4 mg In Dextrose/Water 1 250ml.bag @ 20 MCG/MIN 6 mls/hr IV .Q24H [facility] Rx#: [id number] Sodium Chloride 0.9% 500 500 ml @ 999 mls/hr IV .Q31M [facility] Rx#:[id number] Output: Urine 150 200 Uretheral (Rosen) 150 Physical Exam: Revealed a 75-year-old white male on mechanical ventilation. Endotracheal tube is intact. Orogastric tube is intact. HEENT:[Neck is supple.] [No neck masses.] [No thyromegaly.] [No JVD.] Chest: [minimal fine crackles at the bases Cardiac Exam: [Normal S1 and S2, no S3 gallop, no murmur.] Abdomen: [Soft, nontender, no megaly, no rebound, no guarding, normal bowel sounds.] Extremities: [No clubbing, no edema, no cyanosis.]ulcerative changes noted at the plantar aspect of the right big toe/chronic. Neurological Exam: [cannot be assessed, patient is fully sedated on propofol drip. Results - Laboratory Findings CBC and BMP: 10/07/16 07:30 10/07/16 07:30 ABG ABG pH 7.37 (7.35-7.45) 10/07/16 06:23 ABG pCO2 39 mmHg (35-45) 10/07/16 06:23 ABG pO2 252 mmHg (83-108) H 10/07/16 06:23 ABG O2 Saturation 100.0 % (94-97) H 10/07/16 06:23 PT/INR, D-dimer PT 12.9 sec (9.0-12.0) H 10/06/16 16:52 INR 1.3 (<1.1) 10/06/16 16:52 Abnormal lab findings: Abnormal Labs 10/07/16 10/07/16 10/07/16 01:45 06:23 07:30 WBC RBC Neutrophils # Lymphocytes # ABG pO2 252 H ABG O2 Saturation 100.0 H Sodium 134 L Glucose 274 H POC Glucose (mg/dL) 223 H Calcium 8.3 L Total Bilirubin 2.5 H Alkaline Phosphatase 142 H Troponin I Total Protein 6.0 L Albumin 2.6 L 10/07/16 10/07/16 10/07/16 07:30 07:30 11:34 WBC 32.3 H* RBC 4.14 L Neutrophils # 30.5 H Lymphocytes # 0.7 L ABG pO2 ABG O2 Saturation Sodium Glucose POC Glucose (mg/dL) 259 H Calcium Total Bilirubin Alkaline Phosphatase Troponin I 0.091 H* Total Protein Albumin - Diagnostic Findings Chest x-ray: image reviewed (chest x-ray is suggestive of bilateral pneumonia, and possibly some component of interstitial edema.) Assessment and Plan Plan: impression: 1 acute hypoxic and hypercapnic respiratory failure, multifactorial, I believe it's a combination of interstitial edema, bilateral pneumonia, possibly aspiration pneumonia,and also related to sedatives given in the ER with depression of respiratory drive, given for sedation and possible early alcohol withdrawal symptoms. 2 acute hypertensive emergency with pulmonary edema, contributing significantly to his hypoxic respiratory failure. 3 elevated troponin, felt to be a troponin leak, doubt acute myocardial infarction since the presentation initially was neither cardiac nor pulmonary in nature. It was mostly a presentation of neck pain related to a recent fall. 4 history of alcohol abuse, patient will need to be on alcohol withdrawal protocol was extubated and off propofol drip. 5 history of mixed hyperlipidemia Recommendation: Patient will remain on mechanical ventilation, we will place on bronchodilators, antibiotics, steroids, GI and DVT prophylaxis, nutritional support, diuretics, and alcohol withdrawal protocol. Vent settings will be adjusted according to the next ABG, and we'll continue to follow. Prognosis is guarded. We'll continue to follow. Echocardiogram is pending, cultures are pending, Time with Patient: Greater than 30
--- NOTE | 2016-10-07 13:21 | ECHOF ---
Referral Reason:CHF MEASUREMENTS -------- HEIGHT: 157.5 cm WEIGHT: 68.0 kg BP: 100/56 IVSd: 1.7 cm (0.6 - 1.1) LVIDd: 3.5 cm (3.9 - 5.3) LVPWd: 1.3 cm (0.6 - 1.1) IVSs: 1.8 cm LVIDs: 2.9 cm LVPWs: 1.3 cm LA Diam: 3.6 cm (2.7 - 3.8) LAESV Index (A-L): 18.60 ml/m Ao Diam: 3.9 cm (2.0 - 3.7) AV Cusp: 0.5 cm (1.5 - 2.6) LA Diam: 4.0 cm (2.7 - 3.8) MV EXCURSION: 26.030 mm (> 18.000) MV EF SLOPE: 118 mm/s (70 - 150) EPSS: 1.0 cm MV E Chevy: 0.29 m/s MV DecT: 222 ms MV A Chevy: 0.66 m/s MV E/A Ratio: 0.44 RAP: 5.00 mmHg RVSP: 25.10 mmHg FINDINGS -------- Sinus rhythm. This was a technically adequate study. There is mild concentric left ventricular hypertrophy. Overall left ventricular systolic function is low-normal with, an EF between 50 - 55 %. The right ventricle is normal in size. Normal LA size by volume 22+/-6 ml/m2. The right atrial size is normal. The maximum pressure gradient across the aortic valve is {AV maxPG is 12.99mm hg}. Aov Valve is stenotic with no high gradient. Aov is stenotic with The maximum pressure gradient across the aortic valve is 12.99 mmhg no high gradient noted. clinical corelation is suggested. Mild mitral annular calcification present. Mild mitral regurgitation is present. Mild tricuspid regurgitation present. There is no evidence of pulmonary hypertension. The right ventricular systolic pressure, as measured by Doppler, is 25.10mmHg. There is no pulmonic regurgitation present. The aortic root size is normal. There is no pericardial effusion. CONCLUSIONS -------- 1. There is mild concentric left ventricular hypertrophy. 2. The right ventricular systolic pressure, as measured by Doppler, is 25.10mmHg. 3. Overall left ventricular systolic function is low-normal with, an EF between 50 - 55 %. 4. The maximum pressure gradient across the aortic valve is {AV maxPG}. 5. Aov is stenotic with The maximum pressure gradient across the aortic valve is 12.99 mmhg no high gradient noted. 6. clinical corelation is suggested. 7. Mild mitral annular calcification present. 8. Mild mitral regurgitation is present. 9. Mild tricuspid regurgitation present. 10. There is no evidence of pulmonary hypertension. INSTRUCTIONAL SERVICES LIBRARIAN: Allison Reina RDCS
[2016-10-07 13:24] LABS: ABG PCO2 33 mmHg (35-45); ABG PH 7.47 (7.35-7.45); ABG PO2 99 mmHg (83-108)
[2016-10-07 13:25] LABS: ABG Base Excess 0.7 mmol/L; ABG HCO3 24 mmol/L (21-25); ABG TCO2 25 mmol/L (19-24)
[2016-10-07] MEDS: PANTOPRAZOLE 40 MG/10 ML VIAL IVP SCH (13:36)
[2016-10-07] MEDS: INSULIN LISPRO (humaLOG) 300 UNIT/3 ML VIAL SQ SCH ×2 (13:37→19:45)
[2016-10-07 13:46] VITALS: BMI 20.9
[2016-10-07] MEDS ORDERED: FUROSEMIDE 10 MG/ML 4 ML VIAL IV STA (14:33)
[2016-10-07] MEDS ORDERED: FUROSEMIDE 10 MG/ML 2 ML VIAL IV SCH (16:00)
[2016-10-07 19:28] LABS: Glucose,Whole Blood 199 mg/dL (75-99)
[2016-10-07] MEDS: CHLORHEXIDINE GLUCONATE 15 ML CUP MUCOUS MEM SCH (19:49)
[2016-10-07] MEDS: FUROSEMIDE 10 MG/ML 2 ML VIAL IV SCH (19:50)
[2016-10-07] MEDS: HEPARIN SODIUM,PORCINE 5,000 UNIT/ML 1 ML VIAL SQ SCH (19:50)
[2016-10-07 22:39] LABS: Glucose,Whole Blood 218 mg/dL (75-99)
[2016-10-07] MEDS ORDERED: THIAMINE 100 MG/ML 2 ML VIAL IM STA (23:20)
[2016-10-07] MEDS ORDERED: LORazepam 2 MG/ML SYRINGE IV PRN ×2 (23:20)
[2016-10-07] MEDS: THIAMINE 100 MG TAB PO SCH (23:53)
[2016-10-07] MEDS: POTASSIUM CHLORIDE ORAL LIQUID 40 MEQ/30 ML CUP NG-TUBE SCH (23:54)
[2016-10-08] MEDS: INSULIN LISPRO (humaLOG) 300 UNIT/3 ML VIAL SQ SCH ×3 (00:28→12:57)
[2016-10-08] MEDS: POTASSIUM CHLORIDE ORAL LIQUID 40 MEQ/30 ML CUP NG-TUBE SCH (00:30)
[2016-10-08] MEDS: PROPOFOL 500 MG in EMPTY BAG 1 BAG IV SCH (00:32)
[2016-10-08] MEDS: LORazepam 2 MG/ML SYRINGE IV PRN ×2 (02:05→14:40)
[2016-10-08 05:00] LABS: Basophils % (A) 0 %; CH 32.2; CHCM 33.3; Eosinophils % (A) 0 %; HCT 40.7 % (39.0-53.0); HDW 2.36; HGB 13.5 gm/dL (13.0-17.5); Luc # (Auto) 0.28; Luc % (Auto) 1; Lymphocytes # (A) 1.4 k/uL (1.0-4.8); Lymphocytes % (A) 7 %; MCH 32.3 pg (25.0-35.0); MCHC 33.3 g/dL (31.0-37.0); Mean Platelet Volume 8.3; Monocytes # (A) 0.9 k/uL (0-1.0); Monocytes % (A) 4 %; Neutrophils # (A) 18.9 k/uL (1.3-7.7); Neutrophils % (A) 88 %; RDW 13.2 % (11.5-15.5); WBC 21.5 k/uL (3.8-10.6); WBC (Perox) 21.94
[2016-10-08 05:19] LABS: ALT 28 U/L (21-72); AST 36 U/L (17-59); Alkaline Phosphatase 167 U/L (38-126); Anion Gap 9 mmol/L; Blood Urea Nitrogen 26 mg/dL (9-20); Calcium 8.6 mg/dL (8.4-10.2); Carbon Dioxide 25 mmol/L (22-30); Chloride 104 mmol/L (98-107); Glucose 244 mg/dL (74-99); Magnesium 1.7 mg/dL (1.6-2.3); Non-African American GFR(MDRD) >60 (>60 ml/min/1.73 sqM); Phosphorous 2.5 mg/dL (2.5-4.5); Potassium 4.8 mmol/L (3.5-5.1); Sodium 138 mmol/L (137-145); Total Bilirubin 2.2 mg/dL (0.2-1.3); Total Protein 5.9 g/dL (6.3-8.2)
--- NOTE | 2016-10-08 07:37 | XR ---
EXAMINATION TYPE: XR chest 1V portable DATE OF EXAM: 10/08/2016 6:45 AM COMPARISON: 10/07/2016 HISTORY: Shortness of breath TECHNIQUE: Single frontal view of the chest is obtained. FINDINGS: ET and NG tube stable. Bilateral subsegmental infiltrate noted. Tiny effusion on the left noted. No sizable pneumothorax. Arthropathy of the shoulders. Correlate for underlying COPD. IMPRESSION: 1. Lower lobe subsegmental atelectasis or infiltrate with tiny left effusion stable.
[2016-10-08] MEDS ORDERED: LEVOFLOXACIN 750MG-D5W PMX 750 MG in DEXTROSE/WATER 1 150ML.BAG IVPB SCH (08:00)
[2016-10-08 08:21] LABS: ABG PCO2 37 mmHg (35-45); ABG PH 7.45 (7.35-7.45); ABG PO2 105 mmHg (83-108)
[2016-10-08 08:22] LABS: ABG Base Excess 1.9 mmol/L; ABG HCO3 26 mmol/L (21-25); ABG TCO2 27 mmol/L (19-24)
[2016-10-08 08:40] LABS: Glucose,Whole Blood 265 mg/dL (75-99)
[2016-10-08] MEDS ORDERED: IV VANCOMYCIN PER PHARMACY 1 EACH MISC MISCELLANE PRN (08:40)
[2016-10-08] MEDS: MAGNESIUM SULFATE-D5W PMX 1 GM in DEXTROSE/WATER 1 100ML.BAG IVPB SCH ×2 (08:41→10:55)
[2016-10-08] MEDS: PIPERACILLIN-TAZOBACTAM 3.375 GM in DEXTROSE/WATER 1 50ML.BAG IVPB SCH (08:42)
[2016-10-08] MEDS: FUROSEMIDE 10 MG/ML 2 ML VIAL IV SCH (08:43)
[2016-10-08] MEDS: HEPARIN SODIUM,PORCINE 5,000 UNIT/ML 1 ML VIAL SQ SCH (08:43)
[2016-10-08] MEDS: PANTOPRAZOLE 40 MG/10 ML VIAL IVP SCH (08:43)
[2016-10-08] MEDS: CHLORHEXIDINE GLUCONATE 15 ML CUP MUCOUS MEM SCH (08:43)
[2016-10-08] MEDS: IPRATROPIUM-ALBUTEROL 3 ML NEB INHALATION SCH ×2 (08:51→12:25)
[2016-10-08] MEDS ORDERED: VANCOMYCIN 1,250 MG in SODIUM CHLORIDE 0.9% 250 ML IVPB ONE (09:00)
--- NOTE | 2016-10-08 10:38 | P.PN ---
Subjective Principal diagnosis: Acute respiratory failure this is a 75-year-old white male with history of dementia, recent fall at home about a week ago, and he presented to the ER with complaints of neck pain and mild headache. Workup in the ER included CT of the head and cervical spine, and it showed no evidence of fracture or any acute abnormality. While in the ER , the patient was getting more and more restless and agitated, supposedly is a heavy drinker, and at the same time the patient was receiving intermittent IV injections of Ativan. Looking at the [facility], patient received about 4 mg of Ativan over a period of few hours. Patient was actually waiting in the ER to be admitted, and he was at one point and ER hold. Early this morning, according to the ER physician, the patient became hypertensive, blood pressure was significantly elevated requiring Apresoline and nitroglycerin drip. In the meantime the patient's oxygen requirement was getting worse, and early this morning the patient became unresponsive. He was unable to protect his airways, he was quite lethargic, required intubation and mechanical ventilation. Chest x -ray initially upon arrival to the ER showed mild interstitial edema, not severe enough to cause respiratory failure, however follow-up chest x-ray this morning showed worsening bibasilar infiltrates.suggestive of pneumonia. CBC showed definite leukocytosis,white count is as high as 32.3,lactic acid earlier was 1.7, follow-up lactic acid was 1.4 ProBNP level was elevated at 20, 600.influenza screening was negative.ABG shortly after the patient was intubated showed a pO2 of 252 he CO2 of 39 pH of 7.37 and this was on 100% FiO2.I evaluated the patient in the ICU, I recommended broad-spectrum antibiotics empirically for pneumonia, kept him on small dose of Lasix 20 mg every 12 hours, and cultures were ordered including blood cultures which are pending. Patient was reevaluated today on 10/08/2016, remains on mechanical ventilation, sedated, however I plan to discontinue propofol, wake of the patient, and assess his mental status in the meantime assess the patient couldn't tolerate the weaning trial. This morning the patient remains sedated, and his blood cultures are positive for gram-positive cocci, hence vancomycin was added. ABG this morning showed a pO2 of 105 pCO2 of 37 pH of 7.45. WBC count is 21.5 hemoglobin is 13.5. Asymptomatic metabolic profile relatively unremarkable. Chest x-ray this morning showed no evidence of congestive heart failure there was evidence of lower lobe subsegmental atelectasis or infiltrates and a small tiny left pleural effusion. Objective - Vital Signs Vital signs: Vital Signs Temp 98.1 F 10/08/16 08:00 Pulse 96 10/08/16 09:00 Resp 16 10/08/16 09:00 BP 169/84 10/08/16 09:00 Pulse Ox 99 10/08/16 09:00 Intake & Output 10/07/16 10/08/16 10/08/16 18:59 06:59 18:59 Intake Total 820 1047.6 310 Output Total 500 760 120 Balance 320 287.6 190 Weight 63.7 kg Intake: IV 250 700 50 Piperacillin-Tazobactam 3 50 50 .375 gm In Dextrose/Water 1 50ml.bag @ 12.5 mls/hr IVPB Q8HR [facility] Rx#: [id number] Sodium Chloride 0.9% 1, 250 650 000 ml @ 125 mls/hr IV . Q8H [facility] Rx#:[id number] Intake, IV Titration 550 97.6 200 Amount Levofloxacin 750Mg-D5w 100 Pmx 750 mg In Dextrose/ Water 1 150ml.bag @ 100 mls/hr IVPB Q24H [facility] Rx#: [id number] Magnesium Sulfate-D5w Pmx 100 1 gm In Dextrose/Water 1 100ml.bag @ 100 mls/hr IVPB Q1H [facility] Rx#: [id number] Piperacillin-Tazobactam 3 50 .375 gm In Dextrose/Water 1 50ml.bag @ 12.5 mls/hr IVPB Q8HR [facility] Rx#: [id number] Propofol 500 mg In Empty 50 47.6 Bag 1 bag @ Titrate IV . Q0M [facility] Rx#:[id number] Sodium Chloride 0.9% 500 500 ml @ 999 mls/hr IV .Q31M [facility] Rx#:[id number] Tube Feeding 20 250 60 Output: Urine 500 760 120 Other: Voiding Method Indwelling Catheter Indwelling Catheter - Exam Physical Exam: Revealed a 75-year-old white male on mechanical ventilation. Endotracheal tube is intact. Orogastric tube is intact. HEENT:[Neck is supple.] [No neck masses.] [No thyromegaly.] [No JVD.] Chest: [minimal fine crackles at the bases Cardiac Exam: [Normal S1 and S2, no S3 gallop, no murmur.] Abdomen: [Soft, nontender, no megaly, no rebound, no guarding, normal bowel sounds.] Extremities: [No clubbing, no edema, no cyanosis.]ulcerative changes noted at the plantar aspect of the right big toe/chronic. Neurological Exam: [cannot be assessed, patient is fully sedated on propofol drip. - Labs CBC & Chem 7: 10/08/16 04:35 10/08/16 04:35 Labs: Abnormal Lab Results - Last 24 Hours (Table) 10/07/16 10/07/16 10/07/16 Range/Units 07:30 11:34 12:25 WBC (3.8-10.6) k/uL RBC (4.30-5.90) m/uL Neutrophils # (1.3-7.7) k/uL ABG pH 7.47 H (7.35-7.45) ABG pCO2 33 L (35-45) mmHg ABG HCO3 (21-25) mmol/L ABG Total CO2 25 H (19-24) mmol/L ABG O2 Saturation 98.0 H (94-97) % Potassium (3.5-5.1) mmol/L BUN (9-20) mg/dL Glucose (74-99) mg/dL POC Glucose (mg/dL) 259 H (75-99) mg/dL Hemoglobin A1c 7.9 H (4.2-6.1) % Total Bilirubin (0.2-1.3) mg/dL Alkaline Phosphatase (38-126) U/L Troponin I (0.000-0.034) ng/mL Total Protein (6.3-8.2) g/dL Albumin (3.5-5.0) g/dL 10/07/16 10/07/16 10/07/16 Range/Units 19:24 20:25 22:36 WBC (3.8-10.6) k/uL RBC (4.30-5.90) m/uL Neutrophils # (1.3-7.7) k/uL ABG pH (7.35-7.45) ABG pCO2 (35-45) mmHg ABG HCO3 (21-25) mmol/L ABG Total CO2 (19-24) mmol/L ABG O2 Saturation (94-97) % Potassium 3.2 L (3.5-5.1) mmol/L BUN (9-20) mg/dL Glucose (74-99) mg/dL POC Glucose (mg/dL) 199 H 218 H (75-99) mg/dL Hemoglobin A1c (4.2-6.1) % Total Bilirubin (0.2-1.3) mg/dL Alkaline Phosphatase (38-126) U/L Troponin I (0.000-0.034) ng/mL Total Protein (6.3-8.2) g/dL Albumin (3.5-5.0) g/dL 10/08/16 10/08/16 10/08/16 Range/Units 04:35 04:35 04:35 WBC 21.5 H (3.8-10.6) k/uL RBC 4.20 L (4.30-5.90) m/uL Neutrophils # 18.9 H (1.3-7.7) k/uL ABG pH (7.35-7.45) ABG pCO2 (35-45) mmHg ABG HCO3 (21-25) mmol/L ABG Total CO2 (19-24) mmol/L ABG O2 Saturation (94-97) % Potassium (3.5-5.1) mmol/L BUN 26 H (9-20) mg/dL Glucose 244 H (74-99) mg/dL POC Glucose (mg/dL) (75-99) mg/dL Hemoglobin A1c (4.2-6.1) % Total Bilirubin 2.2 H (0.2-1.3) mg/dL Alkaline Phosphatase 167 H (38-126) U/L Troponin I 0.060 H* (0.000-0.034) ng/mL Total Protein 5.9 L (6.3-8.2) g/dL Albumin 2.4 L (3.5-5.0) g/dL 10/08/16 10/08/16 Range/Units 07:38 08:37 WBC (3.8-10.6) k/uL RBC (4.30-5.90) m/uL Neutrophils # (1.3-7.7) k/uL ABG pH (7.35-7.45) ABG pCO2 (35-45) mmHg ABG HCO3 26 H (21-25) mmol/L ABG Total CO2 27 H (19-24) mmol/L ABG O2 Saturation 98.0 H (94-97) % Potassium (3.5-5.1) mmol/L BUN (9-20) mg/dL Glucose (74-99) mg/dL POC Glucose (mg/dL) 265 H (75-99) mg/dL Hemoglobin A1c (4.2-6.1) % Total Bilirubin (0.2-1.3) mg/dL Alkaline Phosphatase (38-126) U/L Troponin I (0.000-0.034) ng/mL Total Protein (6.3-8.2) g/dL Albumin (3.5-5.0) g/dL Microbiology - Last 24 Hours (Table) 10/07/16 10:52 Blood Culture Gram Stain - Preliminary Blood 10/07/16 12:06 Blood Culture Gram Stain - Preliminary Blood 10/07/16 10:52 Blood Culture - Preliminary Blood 10/07/16 12:06 Blood Culture - Preliminary Blood 10/07/16 17:23 Gram Stain - Preliminary Sputum Sputum Culture - Preliminary Assessment and Plan Plan: impression: 1 acute hypoxic and hypercapnic respiratory failure, multifactorial, I believe it's a combination of interstitial edema, bilateral pneumonia, possibly aspiration pneumonia,and also related to sedatives given in the ER with depression of respiratory drive, given for sedation and possible early alcohol withdrawal symptoms. 2 acute hypertensive emergency with pulmonary edema, contributing significantly to his hypoxic respiratory failure. 3 elevated troponin, felt to be a troponin leak, doubt acute myocardial infarction since the presentation initially was neither cardiac nor pulmonary in nature. It was mostly a presentation of neck pain related to a recent fall. 4 history of alcohol abuse, patient will need to be on alcohol withdrawal protocol was extubated and off propofol drip. 5 history of mixed hyperlipidemia 6 gram-positive sepsis is suspected, final report on the blood cultures is pending in the meantime the patient was started on vancomycin. Recommendation: Patient will remain on mechanical ventilation, we will place on bronchodilators, antibiotics, steroids, GI and DVT prophylaxis, nutritional support, diuretics, and alcohol withdrawal protocol. Ventilator lazcano, patient will be awakened, propofol will be placed on hold, will assess weaning trial and weaning parameters if the patient is noted to be appropriate was is off propofol. In the meantime continue addressing the issues above including his possible cultures. Prognosis remains guarded at this point. We'll continue to follow. Critical care time is 33 minutes. Time with Patient: Greater than 30
[2016-10-08] MEDS ORDERED: hydrALAZINE HCL 20 MG/ML 1 ML VIAL IVP PRN (11:53)
[2016-10-08 12:55] LABS: Glucose,Whole Blood 287 mg/dL (75-99)
--- NOTE | 2016-10-08 12:56 | P.PN ---
Subjective patient remained critically ill. He is sedated and intubated. He failed weaning trial this morning with significant agitation and tachycardia. No family members at bedside. Objective - Vital Signs Vital signs: Vital Signs Temp 98.4 F 10/08/16 12:00 Pulse 88 10/08/16 12:00 Resp 18 10/08/16 12:00 BP 92/60 10/08/16 12:00 Pulse Ox 98 10/08/16 12:00 Intake & Output 10/07/16 10/08/16 10/08/16 18:59 06:59 18:59 Intake Total 820 1047.6 410 Output Total 500 760 685 Balance 320 287.6 -275 Weight 63.7 kg Intake: IV 250 700 50 Piperacillin-Tazobactam 3 50 50 .375 gm In Dextrose/Water 1 50ml.bag @ 12.5 mls/hr IVPB Q8HR [facility] Rx#: [id number] Sodium Chloride 0.9% 1, 250 650 000 ml @ 125 mls/hr IV . Q8H [facility] Rx#:[id number] Intake, IV Titration 550 97.6 300 Amount Levofloxacin 750Mg-D5w 100 Pmx 750 mg In Dextrose/ Water 1 150ml.bag @ 100 mls/hr IVPB Q24H [facility] Rx#: [id number] Magnesium Sulfate-D5w Pmx 200 1 gm In Dextrose/Water 1 100ml.bag @ 100 mls/hr IVPB Q1H [facility] Rx#: [id number] Piperacillin-Tazobactam 3 50 .375 gm In Dextrose/Water 1 50ml.bag @ 12.5 mls/hr IVPB Q8HR [facility] Rx#: [id number] Propofol 500 mg In Empty 50 47.6 Bag 1 bag @ Titrate IV . Q0M [facility] Rx#:[id number] Sodium Chloride 0.9% 500 500 ml @ 999 mls/hr IV .Q31M [facility] Rx#:[id number] Tube Feeding 20 250 60 Output: Urine 500 760 685 Other: Voiding Method Indwelling Catheter Indwelling Catheter Indwelling Catheter - Exam General: The patient is sedated and intubated Eye: there is normal conjunctiva bilaterally. Neck: The neck is supple, there is no JVD. Cardiovascular: Normal S1-S2, no S3-S4, no murmurs. Respiratory: Lungs with mechanical ventilator sounds Gastrointestinal: Abdomen is soft, nontender Musculoskeletal: There is no pedal edema. Skin: Skin is warm and dry - Labs CBC & Chem 7: 10/08/16 04:35 10/08/16 04:35 Labs: Abnormal Lab Results - Last 24 Hours (Table) 10/07/16 10/07/16 10/07/16 Range/Units 07:30 12:25 19:24 WBC (3.8-10.6) k/uL RBC (4.30-5.90) m/uL Neutrophils # (1.3-7.7) k/uL ABG pH 7.47 H (7.35-7.45) ABG pCO2 33 L (35-45) mmHg ABG HCO3 (21-25) mmol/L ABG Total CO2 25 H (19-24) mmol/L ABG O2 Saturation 98.0 H (94-97) % Potassium (3.5-5.1) mmol/L BUN (9-20) mg/dL Glucose (74-99) mg/dL POC Glucose (mg/dL) 199 H (75-99) mg/dL Hemoglobin A1c 7.9 H (4.2-6.1) % Total Bilirubin (0.2-1.3) mg/dL Alkaline Phosphatase (38-126) U/L Troponin I (0.000-0.034) ng/mL Total Protein (6.3-8.2) g/dL Albumin (3.5-5.0) g/dL 10/07/16 10/07/16 10/08/16 Range/Units 20:25 22:36 04:35 WBC 21.5 H (3.8-10.6) k/uL RBC 4.20 L (4.30-5.90) m/uL Neutrophils # 18.9 H (1.3-7.7) k/uL ABG pH (7.35-7.45) ABG pCO2 (35-45) mmHg ABG HCO3 (21-25) mmol/L ABG Total CO2 (19-24) mmol/L ABG O2 Saturation (94-97) % Potassium 3.2 L (3.5-5.1) mmol/L BUN (9-20) mg/dL Glucose (74-99) mg/dL POC Glucose (mg/dL) 218 H (75-99) mg/dL Hemoglobin A1c (4.2-6.1) % Total Bilirubin (0.2-1.3) mg/dL Alkaline Phosphatase (38-126) U/L Troponin I (0.000-0.034) ng/mL Total Protein (6.3-8.2) g/dL Albumin (3.5-5.0) g/dL 10/08/16 10/08/16 10/08/16 Range/Units 04:35 04:35 07:38 WBC (3.8-10.6) k/uL RBC (4.30-5.90) m/uL Neutrophils # (1.3-7.7) k/uL ABG pH (7.35-7.45) ABG pCO2 (35-45) mmHg ABG HCO3 26 H (21-25) mmol/L ABG Total CO2 27 H (19-24) mmol/L ABG O2 Saturation 98.0 H (94-97) % Potassium (3.5-5.1) mmol/L BUN 26 H (9-20) mg/dL Glucose 244 H (74-99) mg/dL POC Glucose (mg/dL) (75-99) mg/dL Hemoglobin A1c (4.2-6.1) % Total Bilirubin 2.2 H (0.2-1.3) mg/dL Alkaline Phosphatase 167 H (38-126) U/L Troponin I 0.060 H* (0.000-0.034) ng/mL Total Protein 5.9 L (6.3-8.2) g/dL Albumin 2.4 L (3.5-5.0) g/dL 10/08/16 Range/Units 08:37 WBC (3.8-10.6) k/uL RBC (4.30-5.90) m/uL Neutrophils # (1.3-7.7) k/uL ABG pH (7.35-7.45) ABG pCO2 (35-45) mmHg ABG HCO3 (21-25) mmol/L ABG Total CO2 (19-24) mmol/L ABG O2 Saturation (94-97) % Potassium (3.5-5.1) mmol/L BUN (9-20) mg/dL Glucose (74-99) mg/dL POC Glucose (mg/dL) 265 H (75-99) mg/dL Hemoglobin A1c (4.2-6.1) % Total Bilirubin (0.2-1.3) mg/dL Alkaline Phosphatase (38-126) U/L Troponin I (0.000-0.034) ng/mL Total Protein (6.3-8.2) g/dL Albumin (3.5-5.0) g/dL Microbiology - Last 24 Hours (Table) 10/07/16 10:52 Blood Culture Gram Stain - Preliminary Blood 10/07/16 12:06 Blood Culture Gram Stain - Preliminary Blood 10/07/16 10:52 Blood Culture - Preliminary Blood 10/07/16 12:06 Blood Culture - Preliminary Blood 10/07/16 17:23 Gram Stain - Preliminary Sputum Sputum Culture - Preliminary Assessment and Plan Plan: 1. Hypertensive emergency: on presentation,May be attributed to medication noncompliance at home. Now blood pressure on the lower side. We'll continue to monitor closely. 2. Acute hypoxic respiratory failure: Multifactorial 3. bacteremia with gram-positive cocci: currently on broad-spectrum IV antibiotic. I would consult infectious disease for further evaluation. 4. Troponin elevation: Most likely not thrombotic troponin leak secondary to hypertensive emergency. 12 leads EKG showed no acute ischemic changes. Cardiology consulted for further evaluation. 5. Aspiration pneumonia: Started on Levaquin and Zosyn. pulmonology following closely. 6. Recent fall with worsening neck pain and headache. Computed tomography scan of the head and cervical spine with no acute findings. 7. Type 2 diabetes mellitus: Continue sliding scale insulin. 8. Mixed hyperlipidemia 9. Reported alcohol abuse: We will discuss further with family members when they arrive 10. GI and DVT prophylaxis Today, I reviewed his medication list and lab work resolved. Continue broad spectrum antibiotic. there is discussion by his familyWith the it portfolio manager about possible comfort measures. Apparently patient was DNR/DNI prior to his presentation. Goals of care are not finalized yet. Appreciate fitness consultant's recommendations. Repeat lab work in the morning. Continue supportive care.
[2016-10-08] MEDS: THIAMINE 100 MG TAB PO SCH (12:58)
[2016-10-08 13:05] VITALS: TEMP 98.8
[2016-10-08] MEDS ORDERED: MORPHINE SULFATE 2 MG/ML SYRINGE ONE ×2 (14:15→14:27)
[2016-10-08] MEDS ORDERED: MORPHINE SULFATE 100 MG in SODIUM CHLORIDE 0.9% 100 ML IV SCH (14:30)
[2016-10-08] MEDS ORDERED: MORPHINE SULFATE 2 MG/ML SYRINGE IVP ONE ×2 (14:30→14:36)
[2016-10-08] MEDS ORDERED: SCOPOLAMINE 1.5MG/72HR PATCH TRANSDERM PRN (14:37)
--- NOTE | 2016-10-08 15:15 | P.DS ---
Providers Date of admission: 10/06/16 20:56 Expected date of discharge: 10/08/16 Attending physician: Mónica Garnett Consults: 10/07/16 07:40 Consult Physician Urgent Consulting Provider: Ruddy Magallanes Consult Reason/Comments: Critical care management Do you want consulting provider notified?: Yes 10/07/16 09:41 Consult Physician Routine Consulting Provider: Rosie Saul Consult Reason/Comments: CHF? Do you want consulting provider notified?: Yes 10/08/16 11:51 Consult Physician Routine Consulting Provider: Barry Rey Consult Reason/Comments: bacteremia Do you want consulting provider notified?: Yes Primary care physician: Adamaris [facility] Course: This is a 75-year-old gentleman with past medical history detailed in his chart who presented to the emergency room initially with worsening neck pain and headache. Patient's clinical condition was deteriorating while he was in the emergency room. He was found to be in hypertensive emergency. He was also was noted to be agitated and received multiple doses of Ativan. He subsequently started being hypoxic with increased oxygen requirement. Chest x-ray showed early pulmonary edema with possible infiltrate. Patient was started on antibiotic and was eventually intubated and mechanically ventilated. Patient was admitted to the intensive care unit and was treated aggressively. Next morning his family members including his daughter showed up and had a prolonged discussion with the community living specialist. They said that his wishes was always to be a DNR/DNI. They did not want to proceed with any aggressive measures. They requested that the patient would be terminally weaned. I did not get the chest to be involved in that discussion personally. Patient was eventually terminally weaned and extubated. He on 10/08/2016. Please refer to the nursing staff documentation for exact time of . Please refer to the electronic chart for further details about this hospitalization and his other medical problems. Plan - Discharge Summary Discharge Medication List Atenolol [Tenormin] 25 mg PO QAM 10/06/16 [History] Atenolol [Tenormin] 37.5 mg PO HS 10/06/16 [History] Benazepril HCl [Lotensin] 20 mg PO DAILY 10/06/16 [History] Calcium Citrate 250 mg PO DAILY 10/06/16 [History] Cholecalciferol [Vitamin D3] 1,000 unit PO DAILY 10/06/16 [History] Dipyridamole-Aspirin 200-25 mg [Aggrenox] 1 cap PO BID 10/06/16 [History] Magnesium Oxide [Mag-Ox] 500 mg PO DAILY 10/06/16 [History] Propylene Glycol/Peg 400/Pf [Systane 0.3-0.4% Eye Drops] 1 drop BOTH EYES BID PRN 10/06/16 [History] Simvastatin [Zocor] 40 mg PO DAILY 10/06/16 [History] Vit C/E/Zn/Coppr/Lutein/Zeaxan [Preservision Areds 2 Softgel] 1 cap PO BID 10/06 [History] busPIRone HCl [Buspar] 5 mg PO BID 10/06/16 [History] metFORMIN HCL [Glucophage] 250 mg PO BID-W/MEALS 10/06/16 [History] tiZANidine [Zanaflex] 4 mg PO HS PRN 10/06/16 [History] Follow up Appointment(s)/Referral(s): Adamaris Guzmán MD [Primary Care Provider] - 1-2 days Discharge Disposition: - Preliminary Cause of Preliminary Cause of : Acute respiratory failure
[2016-10-08 15:22] VITALS: BP 150/74; PULSE 109; RESP 30
--- NOTE | 2016-10-08 16:17 | P.PN ---
Progress Note - Text After rounding on the patient earlier today, family approach regarding his CODE STATUS, and according to the family/daughter patient had previously expressed wishes as not to be on life support. Daughter is concerned that he has a very poor functional status, and she is at a point where she cannot take care of her dad, she stated that she would have not agreed to mechanical ventilation in the first place. And she would never place her dad in a fci. This is also based on his own wishes. At any rate the daughter wants him to be placed on comfort care measures, extubated, and if he doesn't do well after extubation , not to be reintubated, and follow comfort care measures only. Family's wishes will be addressed with the nurses, and we will likely extubated the patient later today. CODE STATUS was changed to DO NOT RESUSCITATE and later on changed to comfort care measures only. Patient was extubated early afternoon, and shortly after he became extremely short of breath, placed on a nonrebreather mask and BiPAP, family was well aware that he is now doing well, and wished comfort care measures only. Patient passed and pronounced in the intensive care unit.
[2016-10-08] MEDS ORDERED: VANCOMYCIN 1,000 MG in SODIUM CHLORIDE 0.9% 250 ML IVPB SCH (21:00)
--- NOTE | 2016-10-08 22:09 | CONS ---
DATE OF CONSULTATION: This is a 75-year-old gentleman who was seen by me in the ICU this morning. He apparently has history of alcoholism and presented to the emergency room with complaints of neck pain. He fell 7 to 10 days ago and was complaining of pain all over; nobody witnessed the fall. He had some altered mentation and I was asked to see him mainly because of an elevated troponin level. He has history of hypertension, hyperlipidemia, underlying dementia. I was unable to obtain any meaningful history from this patient. PAST MEDICAL HISTORY: 1. Alcoholism. 2. Previous history of CVA. 3. Diabetes. 4. Hypertension. 5. Hyperlipidemia. 6. Arthritis of the neck. ALLERGIES: NONE. Medications include: 1. Benazepril. 2. Atenolol. 3. Metformin. 4. Magnesium supplements. 5. Aggrenox. Apparently this patient was very agitated in the emergency room. He received some sedation and subsequently he was intubated in the emergency room after sedation. He was re-evaluated. The emergency room was concerned that he was not able to protect his airway and therefore he was intubated. His troponin profile does not suggest any myocardial injury. It is possible that with some hypoxia there may be some troponin leak, but that does not represent an active ongoing myocardial infarction in this patient. Patient has multiple comorbid conditions, and I am recommending that no intervention is necessary from a coronary disease standpoint. Ejection fraction is 50% to 55% without clear-cut wall motion abnormality on the echocardiogram. There is evidence of probably some mild aortic stenosis as well. On examination, blood pressure is 150/80. Pulse rate is about 70 per minute, sinus. HEENT limited exam was performed. I cannot appreciate JVD. Heart exam reveals S1, S2 with a short systolic murmur. Lungs reveal a lot of respiratory noise and rhonchi. Abdomen is soft. Lower extremities reveal diminished pulses. Central nervous system assessment was not performed. IMPRESSION: Patient's elevated troponin does not represent myocardial injury. He has multiple other problems, including alcoholism, chronic dementia, hypertension, hyperlipidemia. RECOMMENDATIONS: From a cardiac standpoint, I have no new specific suggestions. He is being addressed and managed by retail operations specialist. I would not recommend any aggressive intervention. LV function is fairly well preserved. Will see as needed. Thank you very much for the consult.
== END 2016-10-08 17:00 | disposition expired | DRG 208 ==
LOC: EC 15:41 → 4MS4W 20:56 → 6ICU 10-07 08:44
PROVIDERS: ADMIT Internal Medicine; ATTEND Internal Medicine
PROC: 0BH17EZ Insertion of Endotracheal Airway into Trachea, Via Natural or Artificial Opening (ICD-10-PCS; principal; 2016-10-06)
PROC: 5A1945Z Respiratory Ventilation, 24-96 Consecutive Hours (ICD-10-PCS; principal; 2016-10-06)
DX: J69.0 Pneumonitis due to inhalation of food and vomit (principal); J96.01 Acute respiratory failure with hypoxia; I50.21 Acute systolic (congestive) heart failure; J96.02 Acute respiratory failure with hypercapnia; R78.81 Bacteremia; B96.89 Other specified bacterial agents as the cause of diseases classified elsewhere; E11.621 Type 2 diabetes mellitus with foot ulcer; F03.90 Unspecified dementia, unspecified severity, without behavioral disturbance, psychotic disturbance, mood disturbance, and anxiety; E11.9 Type 2 diabetes mellitus without complications; I16.1 Hypertensive emergency; E78.2 Mixed hyperlipidemia; E86.0 Dehydration; I11.0 Hypertensive heart disease with heart failure; F10.20 Alcohol dependence, uncomplicated; F17.200 Nicotine dependence, unspecified, uncomplicated; W19.XXXA Unspecified fall, initial encounter; Z51.5 Encounter for palliative care; Z66 Do not resuscitate; Y92.009 Unspecified place in unspecified non-institutional (private) residence as the place of occurrence of the external cause; Z79.4 Long term (current) use of insulin; Z79.899 Other long term (current) drug therapy; Z86.73 Personal history of transient ischemic attack (TIA), and cerebral infarction without residual deficits; Z91.81 History of falling; Z79.84 Long term (current) use of oral hypoglycemic drugs; Z91.14 Patient's other noncompliance with medication regimen; L97.509 Non-pressure chronic ulcer of other part of unspecified foot with unspecified severity
CPT/HCPCS: 31500; 36415; 36600; 51702; 70450; 71010; 71020; 72125; 80053; 80306; 80320; 81001; 82805; 83036; 83605; 83735; 83880; 84100; 84132; 84484; 85025; 85610; 85730; 87040; 87070; 87077; 87186; 87205; 87502; 93005; 93306; 94002; 94003; 94640; 96361; 96365; 96366; 96367; 96375; 96376; 99285